=== PATIENT | female | born 1940 | race Caucasian/White ===

== ENCOUNTER 2017-02-05 17:43 | Emergency (ER) | payer OTHER ==
[~2017-02-05] VITALS: Ht 167.6 cm; Wt 86.0 kg
[2017-02-05 17:46] VITALS: BP 144/77; PULSE 75; RESP 17; TEMP 98.3; O2SAT 98
[2017-02-05] MEDS ORDERED: HYDR25TA5 PO (17:58)
[2017-02-05] MEDS ORDERED: LOVA10TA PO (17:58)
[2017-02-05] MEDS ORDERED: PROPARACAINE HCL 0.5% OPHT SOLN 15 ML BTL RIGHT EYE ONE (18:00)
[2017-02-05] MEDS ORDERED: TETANUS/DIPHTHERIA TOXOID ADULT 0.5 ML VIAL IM ONE (18:00)
--- NOTE | 2017-02-05 18:26 | PD ---
HPI Chief Complaint: Eye Problems/Injury Time Seen by Provider: 18:14 Travel History International Travel<30 days: No Contact w/Intl Traveler<30days: No Traveled to known affect area: No History of Present Illness HPI 76-year-old female presents the emergency Department with injury to the right eye. Patient states she is taking her garbage out when a pine needle from the branch swung and hit her in the right lateral eye. Patient is complaining of pain but denies any visual changes. Patient has had tearing from the eye since the incident. Patient states the pain in the right eye is a 6/10. Patient has no other injuries. Patient has no medication allergies. PFSH Past Medical History High Cholesterol: Yes Diminished Hearing: No Hypertension: Yes Tetanus Vaccination: Unknown Influenza Vaccination: No ?: Not Past Surgical History Cholecystectomy: Yes Social History Alcohol Use: No Tobacco Use: No Substance Use: No Allergies-Medications (Allergen,Severity, Reaction): Coded Allergies: Molds and Smuts (Verified Allergy, Mild, COUGH, 02/05/17) Uncoded Allergies: FURRY ANIMALS (Allergy, Severe, Anaphylaxis, 02/05/17) MILDEW (Allergy, Intermediate, COUGH, 02/05/17) Reported Meds & Prescriptions Reported Meds & Active Scripts Active Reported Lovastatin 10 Mg Tab 10 Mg PO DAILY Hydrochlorothiazide 25 Mg Tab 25 Mg PO DAILY Review of Systems Except as stated in HPI: all other systems reviewed are Neg General / Constitutional: No: Fever Eyes: Positive: Redness, Foreign Body Sensation, Pain, Tearing, No: Diploplia , Blurred Vision, Photophobia, Drainage, Blind Spots, Visual changes, Blindness HENT: No: Headaches Cardiovascular: No: Chest Pain or Discomfort Respiratory: No: Shortness of Breath Gastrointestinal: No: Abdominal Pain Genitourinary: No: Dysuria Musculoskeletal: No: Pain Skin: No Rash Neurologic: No: Weakness Psychiatric: No: Depression Endocrine: No: Polydipsia Hematologic/Lymphatic: No: Easy Bruising Physical Exam Narrative GENERAL: Patient appears in mild distress. SKIN: Warm and dry. Normal color. Normal turgor HEAD: Atraumatic. Normocephalic. EYES: Pupils equal and round. No scleral icterus. Patient has a subungual hematoma to the right lateral sclera with localized erythema. ENT: No nasal bleeding or discharge. Mucous membranes pink and moist. NECK: Trachea midline. Supple and nontender. CARDIOVASCULAR: Regular rate and rhythm. RESPIRATORY: No accessory muscle use. MUSCULOSKELETAL: Extremities without clubbing, cyanosis, or edema. No obvious deformities. NEUROLOGICAL: Awake and alert. No obvious cranial nerve deficits. Motor grossly within normal limits. Five out of 5 muscle strength in the arms and legs. Normal speech. PSYCHIATRIC: Appropriate mood and affect; insight and judgment normal. Data Data Last Documented VS Vital Signs Date Time Temp Pulse Resp B/P Pulse Ox O2 Delivery O2 Flow Rate FiO2 02/05/17 17:46 98.3 75 17 144/77 98 Orders Proparacaine 0.5% Opth Soln (Alcaine 0.5 (02/05/17 18:00) Tetanus/Diphtheria Tox Adult (Tetanus/Di (02/05/17 18:00) MDM Medical Decision Making Medical Screen Exam Complete: Yes Emergency Medical Condition: Yes Differential Diagnosis Foreign body. Corneal abrasion. Subungual hematoma. Scleral injury. Narrative Course Patient is medically stable. Proparacaine drops are placed in the right eye with good anesthetic effect. Fluorescein dye is applied as well. Right eye is examined with Wood's lamp. No corneal abrasion is noted. Patient will be treated for a scleral abrasion and sub-conjunctival hematoma. She is given erythromycin ophthalmic ointment to be used every 4 hours while awake for the next 5 days. No contacts for 1 week in the right eye. Patient follow-up with her regional agronomist or return to the ED with worsening symptoms as needed. Diagnosis Primary Impression: Abrasion of sclera of right eye Qualified Code: S05.8X1A - Abrasion of sclera of right eye, initial encounter Additional Impression: Subconjunctival hemorrhage Qualified Code: H11.31 - Subconjunctival hemorrhage, right Referrals: Primary Care Physician Patient Instructions: Conjunctivitis (ED), General Instructions Additional Instructions: Patient will be treated for a scleral abrasion and sub-conjunctival hematoma. She is given erythromycin ophthalmic ointment to be used every 4 hours while awake for the next 5 days. No contacts for 1 week in the right eye. Patient follow-up with her regional agronomist or return to the ED with worsening symptoms as needed. Med/Other Pt SpecificInfo: Prescription(s) given Disposition: DISCHARGE HOME Condition: Stable Trey Boss February 05, 2017 18:26
[2017-02-05] MEDS ORDERED: ERYTOIN10 RIGHT EYE (18:27)
== END 2017-02-05 18:38 | disposition home or self-care (01) ==
LOC: PHEFT 17:43
DX: S05.01XA Injury of conjunctiva and corneal abrasion without foreign body, right eye, initial encounter (principal); H11.31 Conjunctival hemorrhage, right eye; Z23 Encounter for immunization
CPT/HCPCS: 90471; 90714

== ENCOUNTER 2017-04-04 09:42 | Emergency (ER) | payer OTHER ==
[~2017-04-04] VITALS: Ht 167.6 cm; Wt 86.5 kg
[~2017-04-04 09:42] MED LIST: ERYTOIN10 RIGHT EYE; HYDR25TA5 PO; LOVA10TA PO
[2017-04-04 09:47] VITALS: BP 128/66; PULSE 77; RESP 14; TEMP 98.1; O2SAT 96
[2017-04-04] MEDS ORDERED: WATER PILL (10:21)
[2017-04-04] MEDS ORDERED: HTN MED (10:21)
[2017-04-04] MEDS ORDERED: CEPH-460 PO (10:28)
--- NOTE | 2017-04-04 10:28 | PD ---
HPI Chief Complaint: Skin Problem Time Seen by Provider: 10:16 Travel History International Travel<30 days: No Contact w/Intl Traveler<30days: No Traveled to known affect area: No History of Present Illness HPI 77-year-old female here for evaluation of possible infection to her left anterior leg. The patient states that about a month ago she was bitten by either mosquitoes or chiggers. She states that the area became red. She has been applying alcohol and peroxide. She states that the area of redness has improved and her scabs have improved, however today she noticed more itching. She is concerned because the wounds have not completely resolved. She reports that her children who are 7 and 8 years old had similar areas on the legs, however theirs have since healed. She denies fevers or chills. PFS Past Medical History High Cholesterol: Yes Diminished Hearing: No Hypertension: Yes Past Surgical History Cholecystectomy: Yes Social History Alcohol Use: No Tobacco Use: No Substance Use: No Allergies-Medications (Allergen,Severity, Reaction): Coded Allergies: Molds and Smuts (Verified Allergy, Mild, COUGH, 04/04/17) Uncoded Allergies: FURRY ANIMALS (Allergy, Severe, Anaphylaxis, 02/05/17) MILDEW (Allergy, Intermediate, COUGH, 02/05/17) Reported Meds & Prescriptions Reported Meds & Active Scripts Active Reported [Water Pill] [Htn Med] Review of Systems Except as stated in HPI: all other systems reviewed are Neg Physical Exam Narrative GENERAL: Well-developed, well-nourished, comfortable, no apparent distress. SKIN: Left anterior leg with a few dry scabs with mild surrounding erythema and warmth, no red streaks, no fluctuance or induration, no purulent drainage. No crepitus. No necrosis. ENT: No nasal bleeding or discharge. CARDIOVASCULAR: Regular rate and rhythm. Bilateral dorsalis pedis pulses are brisk and equal. RESPIRATORY: No accessory muscle use. Clear to auscultation. Breath sounds equal bilaterally. MUSCULOSKELETAL: No obvious deformities. No clubbing. No cyanosis. No edema. Skin exam as above. Bilateral calves are supple, nontender. NEUROLOGICAL: Awake and alert. No obvious cranial nerve deficits. Motor grossly within normal limits. Normal speech. PSYCHIATRIC: Appropriate mood and affect; insight and judgment normal. Data Data Last Documented VS Vital Signs Date Time Temp Pulse Resp B/P Pulse Ox O2 Delivery O2 Flow Rate FiO2 04/04/17 09:47 98.1 77 14 128/66 96 Room Air MDM Medical Decision Making Medical Screen Exam Complete: Yes Emergency Medical Condition: Yes Differential Diagnosis Cellulitis, insect bites, necrotizing fasciitis unlikely Narrative Course This is a 77-year-old female who is here because she has insect bites on her left anterior leg with surrounding cellulitis. Cellulitis is mild, and the patient states it has been improving over the last week. There are no signs to suggest necrotizing fasciitis. There is no fluctuance or induration. No purulent drainage. Patient has been applying alcohol and peroxide which I have advised that she stops. She has also been applying Neosporin which I advised that she continue as well as local wound care with soap and water. There is mild cellulitis surrounding the scabs on her anterior left leg. Because of this I will start her on Keflex. She is stable for discharge home with outpatient follow-up with a primary care physician this week. She was informed on when to return to the emergency department. She verbalizes understanding and agreement with plan. Diagnosis Primary Impression: Left leg cellulitis Referrals: Primary Care Physician 3 days Additional Instructions: Follow-up with your primary care physician this week. Return to the emergency department for worsening symptoms or any other concerns. Scripts Cephalexin (Keflex)500 Mg [id number] Mg PO Q8H #30 CAP Ref 0 Prov:Dann Dyer MD 04/04/17 Disposition: 01 DISCHARGE HOME Condition: Stable Dann Dyer MD Apr 04, 2017 10:28
== END 2017-04-04 10:46 | disposition home or self-care (01) ==
LOC: PHED 09:42
DX: L03.116 Cellulitis of left lower limb (principal); I10 Essential (primary) hypertension; E78.00 Pure hypercholesterolemia, unspecified
CPT/HCPCS: 99283